=== PATIENT | male | born 2000 | race Caucasian/White ===

== ENCOUNTER 2023-11-06 07:14 | Day surgery (SDC) | payer OTHER ==
[2023-11-05 16:19] VITALS: BMI 50.9
[2023-11-06] MEDS ORDERED: PROPOFOL 20 ML ONE ×3 (10:03→11:18)
[2023-11-06] MEDS ORDERED: MIDAZOLAM HCL 2 MG/2 ML SINGLE DOSE VIAL ONE ×2 (10:03→10:55)
[2023-11-06] MEDS ORDERED: ROPIVACAINE HCL/PF 100 MG/20 ML VIAL ONE (10:16)
[2023-11-06] MEDS ORDERED: DEXAMETHASONE SOD PHOSPHATE 10 MG/1 ML VIAL ONE (10:16)
[2023-11-06] MEDS ORDERED: DEXMEDETOMIDINE HCL 200 MCG/2 ML IVPB ONE (10:16)
[2023-11-06] MEDS ORDERED: HYDROmorphone HCL/PF 1 MG/ML VIAL ONE (11:02)
[2023-11-06] MEDS ORDERED: ONDANSETRON 4 MG/2 ML VIAL ONE (11:54)
[2023-11-06] MEDS ORDERED: ceFAZolin SODIUM 1 GM VIAL ONE (11:54)
[2023-11-06 13:45] VITALS: PULSE 72; RESP 16; TEMP 97.9
[2023-11-06 14:06] VITALS: BP 120/71
== END 2023-11-06 13:55 | disposition home or self-care (01) ==
LOC: FASU 07:14
PROVIDERS: ATTEND Orthopaedic Surgery
PROC: 0PSJ04Z Reposition Left Radius with Internal Fixation Device, Open Approach (ICD-10-PCS; principal; 2023-11-06 11:06)
DX: S52.572A Other intraarticular fracture of lower end of left radius, initial encounter for closed fracture (principal); X58.XXXA Exposure to other specified factors, initial encounter; Y92.9 Unspecified place or not applicable; Y93.9 Activity, unspecified
CPT/HCPCS: 25609; C1713; 73110-TC-LT-FY; 94760; J1100